=== PATIENT | female | born 1995 | race American Indian/Alaskan Native ===

== ENCOUNTER 2020-07-18 11:57 | Emergency (ER) | payer BC, MEDICAID ==
[~2020-07-18] VITALS: Ht 162.6 cm; Wt 61.8 kg
[~2020-07-18 11:57] MED LIST: DOXY-243 PO; HYDR-4383 PO; NO HOME MEDS
[2020-07-18] MEDS ORDERED: normal saline 1000ML IV soln IVB ONE (12:30)
[2020-07-18] MEDS ORDERED: LORazepam 2 mg/ml vial IV ONE (12:30)
[2020-07-18 12:54] LABS: BASOPHILS % (AUTO) 0.4 % (0-1); EOSINOPHILS % (AUTO) 0.3 % (0-6); HEMATOCRIT 44.8 % (35.0-45.0); HEMOGLOBIN 15.2 g/dl (12.0-16.0); LYMPHOCYTES # (AUTO) 2.5 X10'3 (1.1-4.8); MEAN CORPUSCULAR HEMOGLOBIN 29.1 PG (27.0-31.0); MEAN CORPUSCULAR VOLUME 85.5 FL (78-98); MONOCYTES # (AUTO) 0.9 X10'3 (0-0.9); MONOCYTES % (AUTO) 9.9 % (2-12); NEUTROPHILS # (AUTO) 5.2 X10'3 (1.8-7.7); NEUTROPHILS % (AUTO) 60.4 % (42-75); PLATELET COUNT 311 X10'3 (140-440); RED BLOOD COUNT 5.24 X10'6 (4.20-5.60); RED CELL DISTRIBUTION WIDTH 13.7 % (11.5-14.5); WHITE BLOOD COUNT 8.6 X10'3 (4.5-11.0)
[2020-07-18 13:07] LABS: ALANINE AMINOTRANSFERASE 44 U/L (12-78); ALBUMIN 4.7 G/DL (3.4-5.0); ALBUMIN/GLOBULIN RATIO 1.1 (1.1-1.5); ALKALINE PHOSPHATASE 66 IU/L (46-116); ANION GAP 13 (8-16); ASPARTATE AMINO TRANSFERASE 24 U/L (10-37); BILIRUBIN,TOTAL 1.7 MG/DL (0.1-1.0); BLOOD UREA NITROGEN 7 MG/DL (7-18); BUN/CREATININE RATIO 10.6 (6.6-38.0); CALCIUM 9.5 MG/DL (8.5-10.1); CHLORIDE 102 MMOL/L (99-107); CREATININE 0.66 MG/DL (0.40-0.90); GLUCOSE 93 MG/DL (70-104); POTASSIUM 3.2 MMOL/L (3.5-5.1); SODIUM 141 MMOL/L (135-145); TOTAL CARBON DIOXIDE 25.6 MMOL/L (24-32); TOTAL PROTEIN 8.8 G/DL (6.4-8.2); eGFR > 90 ML/MIN
[2020-07-18] MEDS ORDERED: ESCI20TA PO (14:32)
[2020-07-18] MEDS ORDERED: HYDR25CA PO (14:32)
--- NOTE | 2020-07-18 15:58 | NUR ---
Pt given a sandwich, cheese snack, juice and orange to eat. Pt is getting in touch with her family member to drive her home.
[2020-07-18 16:46] VITALS: BP 108/53
== END 2020-07-18 16:40 | disposition home or self-care (01) ==
LOC: ER 11:57 → MERGE 11:57 → ER 16:40
DX: F53.0 Postpartum depression (principal); F41.0 Panic disorder [episodic paroxysmal anxiety]; Z79.2 Long term (current) use of antibiotics; Z79.899 Other long term (current) drug therapy
CPT/HCPCS: 36415; 80053; 85025; 96361; 96374; 99283; J2060; J7030

== ENCOUNTER 2020-11-30 01:43 | Emergency (ER) | payer MEDICAID ==
[~2020-11-30] VITALS: Ht 162.6 cm; Wt 54.2 kg
[~2020-11-30 01:43] MED LIST changes: +ESCI20TA PO; +HYDR25CA PO
[2020-11-30 02:21] VITALS: BP 133/73
== END 2020-11-30 02:22 | disposition home or self-care (01) ==
LOC: ER 01:44 → MERGE 01:44 → ER 02:22
CPT/HCPCS: 99283

== ENCOUNTER 2021-08-18 20:08 | Emergency (ER) | payer BC, MEDICAID ==
[~2021-08-18] VITALS: Ht 162.6 cm; Wt 22.7 kg
[2021-08-18] MEDS ORDERED: orphenadrine citrate 60mg/2ml inj. IM ONE (21:05)
[2021-08-18] MEDS ORDERED: ketorolac tromethamine 15mg/ml inj. IM ONE (21:05)
--- NOTE | 2021-08-18 21:35 | NUR ---
PATIENT TO CT
--- NOTE | 2021-08-18 21:41 | NUR ---
CT WNL, C-colar off now
[2021-08-18 21:58] VITALS: BP 114/64
== END 2021-08-18 22:00 | disposition home or self-care (01) ==
LOC: ER 20:08
DX: S13.9XXA Sprain of joints and ligaments of unspecified parts of neck, initial encounter (principal); F12.10 Cannabis abuse, uncomplicated; V87.7XXA Person injured in collision between other specified motor vehicles (traffic), initial encounter; Y93.89 Activity, other specified; Y92.89 Other specified places as the place of occurrence of the external cause; Y99.8 Other external cause status
CPT/HCPCS: 72125; 96372; 99284; J1885; J2360

== ENCOUNTER 2023-09-09 14:20 | Emergency (ER) | payer BC, MEDICAID ==
[~2023-09-09] VITALS: Ht 162.6 cm; Wt 63.2 kg
[2023-09-09 14:22] VITALS: BP 105/68; PULSE 91; TEMP 98; O2SAT 99
[2023-09-09 14:35] VITALS: RESP 20
--- NOTE | 2023-09-09 18:50 | NUR ---
I AGREE WITH THE ASSESSMENT PER Jasbir ALVAREZ LVN.
== END 2023-09-09 18:52 | disposition home or self-care (01) ==
LOC: ER 14:21
DX: M79.644 Pain in right finger(s) (principal); F12.90 Cannabis use, unspecified, uncomplicated; Z86.69 Personal history of other diseases of the nervous system and sense organs; Z79.899 Other long term (current) drug therapy; W49.04XA Ring or other jewelry causing external constriction, initial encounter; Y93.89 Activity, other specified; Y92.89 Other specified places as the place of occurrence of the external cause; Y99.8 Other external cause status
CPT/HCPCS: 99284

== ENCOUNTER 2024-05-05 19:44 | Emergency (ER) | payer MEDICAID ==
[~2024-05-05] VITALS: Ht 162.6 cm; Wt 63.2 kg
[2024-05-05 21:02] LABS: BASOPHILS % (AUTO) 0.7 % (0-1); EOSINOPHILS # (AUTO) 0.1 X10'3 (0-0.9); EOSINOPHILS % (AUTO) 1.5 % (0-6); HEMATOCRIT 36.6 % (35.0-45.0); LYMPHOCYTES # (AUTO) 2.5 X10'3 (1.1-4.8); LYMPHOCYTES % (AUTO) 39.9 % (21-51); MEAN CORPUSCULAR HEMOGLOBIN 28.2 PG (27.0-31.0); MEAN CORPUSCULAR HGB CONC 32.9 g/dL (33.0-36.5); MEAN CORPUSCULAR VOLUME 85.8 FL (78-98); MEAN PLATELET VOLUME 8.4 FL (7.4-10.4); MONOCYTES # (AUTO) 0.5 X10'3 (0-0.9); MONOCYTES % (AUTO) 8.8 % (2-12); NEUTROPHILS # (AUTO) 3.1 X10'3 (1.8-7.7); NEUTROPHILS % (AUTO) 49.1 % (42-75); PLATELET COUNT 225 X10'3 (140-440); RED BLOOD COUNT 4.26 X10'6 (4.20-5.60); RED CELL DISTRIBUTION WIDTH 12.8 % (11.5-14.5); WHITE BLOOD COUNT 6.3 X10'3 (4.5-11.0)
[2024-05-05 21:19] LABS: ALANINE AMINOTRANSFERASE 24 U/L (12-78); ALBUMIN 3.7 G/DL (3.4-5.0); ALBUMIN/GLOBULIN RATIO 1.1 (1.1-1.5); ALKALINE PHOSPHATASE 63 IU/L (46-116); ANION GAP 9 (8-16); ASPARTATE AMINO TRANSFERASE 16 U/L (10-37); BILIRUBIN,TOTAL 0.7 MG/DL (0.1-1.0); BLOOD UREA NITROGEN 12 MG/DL (7-18); BUN/CREATININE RATIO 21.8 (10.0-20.0); CALCIUM 8.2 MG/DL (8.5-10.1); CHLORIDE 105 MMOL/L (99-107); CREATININE 0.55 MG/DL (0.40-0.90); GLUCOSE 94 MG/DL (70-104); LIPASE 31 U/L (16-77); POTASSIUM 3.8 MMOL/L (3.5-5.1); SODIUM 139 MMOL/L (135-145); TOTAL CARBON DIOXIDE 24.9 MMOL/L (24-32); TOTAL PROTEIN 7.2 G/DL (6.4-8.2); eCRCL 133 ML/MIN; eGFR > 90 ML/MIN
[2024-05-05 22:30] LABS: BILIRUBIN,URINE NEGATIVE (Neg); CLARITY,URINE CLEAR (Clear); COLOR,URINE YELLOW (Yellow); GLUCOSE, URINE NEGATIVE (Neg); KETONES,URINE NEGATIVE (Neg); LEUKOCYTE ESTERASE ,URINE NEGATIVE (Neg); NITRITES, URINE NEGATIVE (Neg); OCCULT BLOOD,URINE NEGATIVE (Neg); PH,URINE 8.5 (4.8-8.0); PROTEIN,URINE TRACE mg/dl (Neg)
[2024-05-05 22:30] LABS: URINE HCG NEGATIVE (NEG)
[2024-05-05 22:34] LABS: UA COLLECTION TYPE VOIDED
[2024-05-05 22:35] LABS: AMORPHOUS PHOSPHATES 1+; BACTERIA,URINE NONE SEEN /HPF (Neg); MUCUS STRANDS FEW /LPF (Neg); RBC,URINE NONE SEEN /HPF (0-2); SQUAMOUS EPITHELIAL CELL,UR FEW /LPF (FEW); WBC,URINE NONE SEEN /HPF (0-4)
[2024-05-05] MEDS: morphine 2 MG/ML inj. syringe IV PRN (22:35)
[2024-05-05] MEDS: cyclobenzaprine 10mg tablet PO ONE (22:35)
[2024-05-05] MEDS: ketorolac tromethamine 15mg/ml inj. IV ONE (22:35)
[2024-05-06] VITALS: BP 96/50; PULSE 57; RESP 15; TEMP 98.1; O2SAT 97
[2024-05-06] MEDS ORDERED: CYCL-1 PO (01:02)
== END 2024-05-06 01:36 | disposition home or self-care (01) ==
LOC: ER 19:44
DX: M54.50 Low back pain, unspecified (principal); F12.90 Cannabis use, unspecified, uncomplicated; Z79.2 Long term (current) use of antibiotics; Z79.899 Other long term (current) drug therapy
CPT/HCPCS: 36415; 76770; 80053; 81001; 81025; 83690; 85025; 96374; 96375; 99285; J1885; J2270

== ENCOUNTER 2024-05-16 20:12 | Emergency (ER) | payer MEDICAID ==
[~2024-05-16] VITALS: Ht 162.6 cm; Wt 59.1 kg
[~2024-05-16 20:12] MED LIST changes: +CYCL-1 PO
[2024-05-16 20:15] VITALS: TEMP 98.9
[2024-05-16] MEDS: normal saline 1000ML IV soln IVB ONE ×3 (20:30→22:12)
[2024-05-16 20:31] LABS: BASOPHILS % (AUTO) 0.7 % (0-1); EOSINOPHILS % (AUTO) 0.4 % (0-6); HEMATOCRIT 40.6 % (35.0-45.0); HEMOGLOBIN 13.3 g/dl (12.0-16.0); LYMPHOCYTES # (AUTO) 2.2 X10'3 (1.1-4.8); LYMPHOCYTES % (AUTO) 35.7 % (21-51); MEAN CORPUSCULAR HEMOGLOBIN 28.3 PG (27.0-31.0); MEAN CORPUSCULAR HGB CONC 32.9 g/dL (33.0-36.5); MEAN CORPUSCULAR VOLUME 86.1 FL (78-98); MEAN PLATELET VOLUME 8.1 FL (7.4-10.4); MONOCYTES # (AUTO) 0.5 X10'3 (0-0.9); MONOCYTES % (AUTO) 8.4 % (2-12); NEUTROPHILS # (AUTO) 3.5 X10'3 (1.8-7.7); NEUTROPHILS % (AUTO) 54.8 % (42-75); PLATELET COUNT 230 X10'3 (140-440); RED BLOOD COUNT 4.71 X10'6 (4.20-5.60); RED CELL DISTRIBUTION WIDTH 13.2 % (11.5-14.5); WHITE BLOOD COUNT 6.3 X10'3 (4.5-11.0)
[2024-05-16] MEDS: LORazepam 2 mg/ml vial IV ONE (20:54)
[2024-05-16 22:00] VITALS: BP 124/70; PULSE 103; RESP 16; O2SAT 98
[2024-05-16] MEDS ORDERED: LORazepam 1 MG tablet PO ONE (22:05)
[2024-05-16] MEDS: LORazepam 0.5 MG tablet PO ONE (22:22)
== END 2024-05-16 22:39 | disposition home or self-care (01) ==
LOC: ER 20:13
DX: R56.9 Unspecified convulsions (principal); F41.9 Anxiety disorder, unspecified; R06.4 Hyperventilation; F12.90 Cannabis use, unspecified, uncomplicated; Z79.2 Long term (current) use of antibiotics; Z79.899 Other long term (current) drug therapy; Z87.442 Personal history of urinary calculi
CPT/HCPCS: 36415; 85025; 93005; 96361; 96374; 99284; J2060; J7030

== ENCOUNTER 2024-11-28 09:59 | Emergency (ER) | payer MEDICAID ==
[~2024-11-28] VITALS: Ht 162.6 cm; Wt 51.5 kg
[2024-11-28 10:16] VITALS: BP 116/66; PULSE 91; RESP 18; TEMP 97.8; O2SAT 99
== END 2024-11-28 11:01 | disposition home or self-care (01) ==
LOC: ER 10:00
DX: T16.2XXA Foreign body in left ear, initial encounter (principal); F12.90 Cannabis use, unspecified, uncomplicated; Z79.899 Other long term (current) drug therapy; Z87.442 Personal history of urinary calculi; W44.8XXA Other foreign body entering into or through a natural orifice, initial encounter; Y93.89 Activity, other specified; Y92.89 Other specified places as the place of occurrence of the external cause; Y99.8 Other external cause status
CPT/HCPCS: 99284